=== PATIENT | female | born 1990 | race Caucasian/White ===

== ENCOUNTER 2018-01-25 02:58 | Emergency (ER) | payer SELFPAY ==
[2018-01-25 03:30] VITALS: BP 156/95
--- NOTE | 2018-01-25 03:33 | PHYS DOC ---
Past History Past Medical History: No Pertinent History Past Surgical History: Alcohol Use: None Drug Use: None Adult General Chief Complaint Chief Complaint: OB/UTERINE CONTRACTIONS HPI HPI Patient is a 27 year old female who presents with complaint of abdominal pain and cramping. The patient is of unknown gestational age. The patient has had no care with her current . Patient states she started having abdominal cramping that feels like contractions. The patient states that currently she is having them every 2-3 minutes. The patient has had leakage of fluid. Denies bleeding. The patient came through the front door of this emergency department for medical evaluation. The patient has required delivery with her 2 prior pregnancies. Review of Systems Review of Systems Constitutional: Denies fever or chills [] Eyes: Denies change in visual acuity, redness, or eye pain [] HENT: Denies nasal congestion or sore throat [] Respiratory: Denies cough or shortness of breath [] Cardiovascular: Denies chest pain or edema[] GI: Abdominal pain, denies nausea, vomiting, bloody stools or diarrhea [] : Denies dysuria or hematuria [] Musculoskeletal: Denies back pain or joint pain [] Integument: Denies rash or skin lesions [] Neurologic: Denies headache, focal weakness or sensory changes [] All other systems were reviewed and found to be within normal limits, except as documented in this note. Allergies Allergies Allergies Coded Allergies Type Severity Reaction Last Updated Verified Penicillins Allergy Intermediate 09/24/16 Yes naproxen Allergy Intermediate rash 09/24/16 Yes Physical Exam Physical Exam Constitutional: Alert, afebrile, contractions 2-3 minutes apart. [] HENT: Normocephalic, atraumatic, bilateral external ears normal, oropharynx moist, no oral exudates, nose normal. [] Eyes: PERRLA, EOMI, conjunctiva normal, no discharge. [] Neck: Normal range of motion, no tenderness, supple, no stridor. [] Cardiovascular:Heart rate regular rhythm, no murmur [] Lungs & Thorax: Bilateral breath sounds clear to auscultation [] Abdomen: Gravid abdomen, fundal height 36 cm from pubis, no tenderness, no masses, no pulsatile masses. : Cervix fully effaced, dilated 6 cm, rupture of membranes[] Skin: Warm, dry, no erythema, no rash. [] Back: No tenderness, no CVA tenderness. [] Extremities: No tenderness, no cyanosis, no clubbing, ROM intact, no edema. [] Neurologic: Alert and oriented X 3, normal motor function, normal sensory function, no focal deficits noted. [] Current Patient Data Vital Signs Heart rate 104, blood pressure 134/96, SPO2 98% Lab Results Not performed EKG EKG Rhythm strip interpretation by me: Heart rate 102, sinus tachycardia, no ectopy[ ] Radiology/Procedures Radiology/Procedures heart rate 160-180 bpm[] Course & Med Decision Making Course & Med Decision Making Pertinent Labs and Imaging studies reviewed. (See chart for details) Patient appears to be in active labor at this time. This facility has no OB capabilities. The patient has been stabilized to the best of our ability and would benefit from transfer to the nearest facility with OB capabilities which is [facility]. I spoke with Dr. Flores, CLASS[employer]IED ADVERTISING CLERK, who accepted patient for emergent transfer by EMS. EMS arrived at [id number]. Dragon Disclaimer Dragon Disclaimer This electronic medical record was generated, in whole or in part, using a voice recognition dictation system. Departure Departure: Impression: Primary Impression: Active labor Disposition: 02 XFER SHT-TRM HOSP Condition: GUARDED Referrals: LEONARDO CARREON APRN (PCP) REGGIE MOROCHO MD Jan 25, 2018 03:32
== END 2018-01-25 03:35 | disposition short-term general hospital (02) ==
LOC: ER 02:58
DX: O26.899 Other specified pregnancy related conditions, unspecified trimester (principal); Z3A.00 Weeks of gestation of pregnancy not specified; Z88.0 Allergy status to penicillin; Z88.6 Allergy status to analgesic agent
CPT/HCPCS: 99285